=== PATIENT | male | born 1945 | race Caucasian/White ===

== ENCOUNTER 2018-05-12 08:30 | Emergency (ER) | payer MEDICARE ==
[~2018-05-12] VITALS: Ht 170.2 cm; Wt 87.3 kg
[2018-05-12] MEDS ORDERED: PRAVASTATIN SOD40 MG PO (09:30)
[2018-05-12 09:39] VITALS: BP 148/86
== END 2018-05-12 09:39 | disposition home or self-care (01) ==
LOC: ED 08:30
PROC: 0HQ0XZZ Repair Scalp Skin, External Approach (ICD-10-PCS; principal; 2018-05-12)
DX: S01.01XA Laceration without foreign body of scalp, initial encounter (principal); E78.5 Hyperlipidemia, unspecified; W17.89XA Other fall from one level to another, initial encounter; Y92.008 Other place in unspecified non-institutional (private) residence as the place of occurrence of the external cause